=== PATIENT | female | born 1980 | race Caucasian/White ===

== ENCOUNTER 2018-11-07 10:41 | Inpatient (IN) ==
[2018-11-07] MEDS ORDERED: SODIUM CHLORIDE 0.9% 1,000 ML IV STA ×2 (11:41→14:25)
[2018-11-07] MEDS ORDERED: ONDANSETRON 4 MG/2 ML VIAL IV ONE (11:41)
[2018-11-07] MEDS ORDERED: MORPHINE 4 MG/1 ML VIAL IV ONE (11:41)
[2018-11-07 11:51] LABS: Basophils # 0.2 10*3/uL (0.0-0.2); Basophils % 0.4 % (0.0-0.8); Hematocrit 43.3 VOL% (35.7-47.0); Hemoglobin 13.6 GM/DL (12.0-16.0); Immature Granulocytes % 2.1 %; Immature Granulocytes Absolute 0.75 #; Lymphocytes # 2.3 10*3/uL (1.4-4.0); Lymphocytes % 6.4 % (21.3-54.2); Mean Corpuscular HGB Conc 31.4 GM/DL (32-36); Mean Corpuscular Volume 94.3 FL (87-102); Mean Platelet Volume 11.4 FL (9.6-12.0); Monocytes % 4.6 % (1.7-12.7); Neutrophils % 86.5 % (38.7-73.9); Platelet Count 413 T/CUMM (130-400); Red Blood Count 4.59 MC/CUMM (3.8-5.5); Red Cell Distribution Width 12.2 % (9.3-17.3); White Blood Count 35.6 T/CUMM (4-12)
[2018-11-07 12:04] LABS: ABG Base Excess -25.6 MMOL/L (-2.5-2.5); ABG HCO3 7.5 MMOL/L (20-26); ABG Oxygen Saturation 98.6 % (95-100); ABG TCO2 3.5 MMOL/L (23-27)
[2018-11-07 12:08] LABS: ABG PH 7.112 (7.35-7.45)
[2018-11-07 12:45] LABS: Band Neutrophils 3 % (0-10); Lymphocytes 6 % (20-55); Segmented Neutrophils 88 % (50-85); Total Cells Counted 100
[2018-11-07 12:46] LABS: Microcytosis Slight; Platelet Estimate Increased
[2018-11-07 13:01] LABS: PT Patient Result 10.5 SECS (9.6-12.2)
[2018-11-07 13:47] LABS: Alanine Aminotransferase 34 U/L (13-56); Albumin 4.5 G/DL (3.4-5.0); Alkaline Phosphatase 210 U/L (45-117); Aspartate Amino Transferase 19 U/L (0-37); Blood Urea Nitrogen 29 MG/DL (7-18); Calcium 9.2 MG/DL (8.5-10.1); Osmolality,Calculated 304.8 MOS/KG (273-304); Total Protein 8.5 G/DL (6.4-8.3); Troponin I < 0.015 NG/ML (0.00-0.045)
[2018-11-07 13:53] LABS: Glucose 558 MG/DL (74-106)
[2018-11-07] MEDS ORDERED: ALBUTEROL 2.5 MG/3 ML NEB RESP TX PRN (14:28)
[2018-11-07] MEDS ORDERED: SODIUM BICARBONATE 50 MEQ/50 ML SYRINGE IV STA (14:28)
[2018-11-07] MEDS ORDERED: ACETAMINOPHEN 325 MG TABLET PO PRN (14:28)
[2018-11-07] MEDS ORDERED: MORPHINE 4 MG/1 ML VIAL IV PRN (14:28)
[2018-11-07] MEDS ORDERED: DEXTROSE 50% 25 GM/50 ML VIAL IV PRN ×2 (14:32)
[2018-11-07] MEDS ORDERED: MAGNESIUM SULF RIDER 4 GM in PREMIX 1 EACH IV PRN (14:32)
[2018-11-07] MEDS ORDERED: SODIUM BICARB INJ 100 MEQ in STERILE WATER INJ 400 ML IV PRN (14:32)
[2018-11-07] MEDS ORDERED: INSULIN REGULAR 100 UNIT/ML IV ONE (14:32)
[2018-11-07] MEDS ORDERED: SODIUM PHOSPHATE INJ 16.4 MMOL in SODIUM CHLORIDE 0.9% 250 ML IV PRN (14:32)
[2018-11-07] MEDS ORDERED: SODIUM CHLORIDE 0.9% 1,000 ML IV ONE (14:32)
[2018-11-07] MEDS: INSULIN REGULAR DRIP 100 ML IV PRN (14:46)
[2018-11-07] MEDS ORDERED: PANTOPRAZOLE 40 MG TABLET PO SCH (15:00)
[2018-11-07] MEDS ORDERED: INSULIN REGULAR DRIP 100 ML IV SCH (15:00)
[2018-11-07 15:20] LABS: Pt O2 Delivery Device Room Air
[2018-11-07 15:21] LABS: ABG Base Excess -22.4 MMOL/L (-2.5-2.5); ABG HCO3 8.8 MMOL/L (20-26); ABG Oxygen Saturation 98.2 % (95-100); ABG TCO2 5.3 MMOL/L (23-27)
[2018-11-07 15:27] LABS: ABG PCO2 16.5 MM HG (35-48); ABG PH 7.147 (7.35-7.45)
[2018-11-07 15:45] LABS: Apearance,Urine CLEAR (Clear); Bilirubin,Urine Negative (Negative); Blood, Urine Small mg/dL (Negative); Glucose,Urine (UA) >=500 mg/dL (Negative); Ketones,Urine 80 mg/dL (Negative); Nitrite,Urine Negative (Negative); Protein,Urine Negative; RBC,Urine <1 /HPF (0-4); Squamous Epithelial Cell,Urine Occasional /HPF (0-10); Urine Color Straw (Yellow); Urine Specific Gravity 1.015 (1.001-1.035); Urine Urobilinogen < 2.0 EU/DL (0.2-1.0); WBC,Urine <1 /HPF (0-6)
[2018-11-07 16:06] LABS: Barbiturates Screen,Urine Negative (Negative); Benzodiazepines Screen,Urine Negative (Negative); Cannabinoid Screen,Urine Negative (Negative); Opiate Screen,Urine Positive (Negative); Phencyclidine Screen,Urine Negative (Negative)
[2018-11-07] MEDS ORDERED: INSULIN ASPART PROTAMINE/ASPART 70/30 100 UNIT/ML SUBCUT SCH (16:30)
[2018-11-07 16:58] LABS: Allen Test Positive; Pt O2 Delivery Device Room Air
[2018-11-07 16:59] LABS: ABG Base Excess -18.9 MMOL/L (-2.5-2.5); ABG HCO3 10.7 MMOL/L (20-26); ABG Oxygen Saturation 98.3 % (95-100); ABG PH 7.212 (7.35-7.45); ABG TCO2 7.2 MMOL/L (23-27)
[2018-11-07 17:01] LABS: ABG PCO2 19.5 MM HG (35-48)
[2018-11-07] MEDS: SODIUM CHLORIDE 0.9% 1,000 ML IV SCH ×3 (17:01→19:36)
[2018-11-07 17:07] LABS: Calcium 8.4 MG/DL (8.5-10.1); Osmolality,Calculated 312.6 MOS/KG (273-304)
[2018-11-07] MEDS: PANTOPRAZOLE 40 MG TABLET PO SCH (17:45)
[2018-11-07] MEDS: ENOXAPARIN 40 MG/0.4 ML SYRINGE SUBCUT SCH (17:45)
[2018-11-07] MEDS: cefTRIAXone 1,000 MG in SYRINGE 1 EACH IV SCH (17:46)
[2018-11-07] MEDS ORDERED: SODIUM CHLORIDE 0.9% 1,000 ML IV SCH (19:32)
[2018-11-07] MEDS: DEXTROSE 5% NACL 0.9% 1,000 ML IV SCH (20:30)
[2018-11-07 23:14] LABS: ABG Base Excess -14.2 MMOL/L (-2.5-2.5); ABG HCO3 13.5 MMOL/L (20-26); ABG Oxygen Saturation 97.3 % (95-100); ABG PCO2 28.4 MM HG (35-48); ABG PH 7.239 (7.35-7.45); ABG PO2 94.7 MM HG (80-95); ABG TCO2 11.2 MMOL/L (23-27); Allen Test Positive; Pt O2 Delivery Device Room Air
[2018-11-07 23:50] LABS: Calcium 7.4 MG/DL (8.5-10.1)
[2018-11-08] MEDS: DEXT 5% NACL 0.45% KCL 20 MEQ 20 MEQ/1,000 ML BAG IV SCH ×2 (00:41→04:51)
[2018-11-08] MEDS: DEXTROSE 5% NACL 0.9% 1,000 ML IV SCH ×2 (01:11→05:24)
[2018-11-08 04:51] LABS: Basophils % 0.1 % (0.0-0.8); Hematocrit 30.9 VOL% (35.7-47.0); Hemoglobin 10.2 GM/DL (12.0-16.0); Immature Granulocytes % 0.6 %; Immature Granulocytes Absolute 0.11 #; Lymphocytes # 1.1 10*3/uL (1.4-4.0); Lymphocytes % 5.7 % (21.3-54.2); Mean Corpuscular Volume 90.4 FL (87-102); Mean Platelet Volume 11.1 FL (9.6-12.0); Monocytes % 6.1 % (1.7-12.7); Neutrophils % 87.5 % (38.7-73.9); Platelet Count 293 T/CUMM (130-400); Red Blood Count 3.42 MC/CUMM (3.8-5.5); Red Cell Distribution Width 12.6 % (9.3-17.3); White Blood Count 18.3 T/CUMM (4-12)
[2018-11-08 05:07] LABS: Calcium 7.9 MG/DL (8.5-10.1)
[2018-11-08 05:19] LABS: Risk Ratio 2.78; Thyroid Stimulating Hormone 0.255 uIU/ml (0.358-3.74); VLDL CHOLESTEROL 24.2 MG/DL
[2018-11-08] MEDS ORDERED: POTASSIUM CHLORIDE RIDER 100 ML IV ONE (06:04)
[2018-11-08] MEDS ORDERED: POTASSIUM CHLORIDE RIDER 20 MEQ in PREMIX 1 EACH IV PRN (06:06)
[2018-11-08] MEDS: MAGNESIUM SULF RIDER 2 GM in PREMIX 1 EACH IV PRN (06:24)
[2018-11-08] MEDS ORDERED: SODIUM CHLORIDE 0.45% 1,000 ML IV SCH (07:32)
[2018-11-08] MEDS: DEXT 5% NACL 0.45% KCL 40 MEQ 40 MEQ/1,000 ML BAG IV SCH ×5 (08:04→20:40)
[2018-11-08] MEDS ORDERED: INSULIN ASPART PROTAMINE/ASPART 70/30 100 UNIT/ML SUBCUT SCH (09:00)
[2018-11-08] MEDS: PANTOPRAZOLE 40 MG TABLET PO SCH (09:28)
[2018-11-08] MEDS: ONDANSETRON 4 MG/2 ML VIAL IV PRN ×3 (09:32→21:13)
[2018-11-08] MEDS: INSULIN REGULAR DRIP 100 ML IV PRN (11:12)
[2018-11-08] MEDS: ERYTHROMYCIN INJ 500 MG in SODIUM CHLORIDE 0.9% 100 ML IV SCH ×2 (12:37→20:11)
[2018-11-08 13:29] LABS: Calcium 7.8 MG/DL (8.5-10.1); Osmolality,Calculated 294.3 MOS/KG (273-304)
[2018-11-08] MEDS: ENOXAPARIN 40 MG/0.4 ML SYRINGE SUBCUT SCH (14:48)
[2018-11-08] MEDS: cefTRIAXone 1,000 MG in SYRINGE 1 EACH IV SCH (14:49)
[2018-11-08 19:55] LABS: Calcium 7.7 MG/DL (8.5-10.1); Osmolality,Calculated 285.8 MOS/KG (273-304)
[2018-11-09] MEDS: DEXT 5% NACL 0.45% KCL 40 MEQ 40 MEQ/1,000 ML BAG IV SCH (02:55)
[2018-11-09 04:34] LABS: Basophils % 0.3 % (0.0-0.8); Eosinophils % 0.1 % (0.00-10.9); Hematocrit 29.6 VOL% (35.7-47.0); Hemoglobin 9.6 GM/DL (12.0-16.0); Immature Granulocytes % 0.6 %; Immature Granulocytes Absolute 0.07 #; Lymphocytes # 1.7 10*3/uL (1.4-4.0); Lymphocytes % 14.1 % (21.3-54.2); Mean Corpuscular HGB Conc 32.4 GM/DL (32-36); Mean Corpuscular Volume 92.2 FL (87-102); Mean Platelet Volume 11.1 FL (9.6-12.0); Monocytes % 6.6 % (1.7-12.7); Neutrophils % 78.3 % (38.7-73.9); Platelet Count 213 T/CUMM (130-400); Red Blood Count 3.21 MC/CUMM (3.8-5.5); Red Cell Distribution Width 13.1 % (9.3-17.3); White Blood Count 11.9 T/CUMM (4-12)
[2018-11-09 04:59] LABS: Albumin 2.5 G/DL (3.4-5.0); Bilirubin,Total 0.9 MG/DL (0.2-1.0); Free T4 (Free Thyroxine) 0.94 NG/DL (0.76-1.46); Thyroid Stimulating Hormone 0.852 uIU/ml (0.358-3.74); Total Protein 5.3 G/DL (6.4-8.3)
[2018-11-09] MEDS: ONDANSETRON 4 MG/2 ML VIAL IV PRN ×2 (08:55→21:30)
[2018-11-09] MEDS ORDERED: INSULIN ASPART PROTAMINE/ASPART 70/30 100 UNIT/ML SUBCUT SCH (09:00)
[2018-11-09] MEDS ORDERED: SODIUM CHLORIDE 0.45% 1,000 ML IV SCH (09:00)
[2018-11-09] MEDS: ERYTHROMYCIN INJ 500 MG in SODIUM CHLORIDE 0.9% 100 ML IV SCH ×2 (09:04→20:18)
[2018-11-09] MEDS: PANTOPRAZOLE 40 MG TABLET PO SCH (09:09)
[2018-11-09] MEDS ORDERED: PHENOL 1.4% THROAT SPRAY 177 ML BOTTLE PO PRN (10:49)
[2018-11-09] MEDS ORDERED: DEXTROSE 5% NACL 0.45% 1,000 ML IV SCH (12:00)
[2018-11-09] MEDS: DEXTROSE 5% 1,000 ML IV SCH (13:42)
[2018-11-09] MEDS: INSULIN GLARGINE 100 UNIT/ML SUBCUT SCH ×2 (13:52→16:35)
[2018-11-09] MEDS: cefTRIAXone 1,000 MG in SYRINGE 1 EACH IV SCH (14:51)
[2018-11-09] MEDS: INSULIN REGULAR 100 UNIT/ML SUBCUT SCH (21:07)
[2018-11-10] MEDS: DEXTROSE 5% 1,000 ML IV SCH ×2 (03:25→16:56)
[2018-11-10 04:25] LABS: Basophils % 0.1 % (0.0-0.8); Eosinophils # 0.1 10*3/uL (0.0-0.87); Eosinophils % 0.9 % (0.00-10.9); Hematocrit 28.6 VOL% (35.7-47.0); Hemoglobin 9.5 GM/DL (12.0-16.0); Immature Granulocytes % 0.3 %; Immature Granulocytes Absolute 0.02 #; Lymphocytes # 2.1 10*3/uL (1.4-4.0); Lymphocytes % 27.4 % (21.3-54.2); Mean Corpuscular HGB Conc 33.2 GM/DL (32-36); Mean Corpuscular Volume 90.2 FL (87-102); Mean Platelet Volume 11.1 FL (9.6-12.0); Monocytes % 7.3 % (1.7-12.7); Platelet Count 187 T/CUMM (130-400); Red Blood Count 3.17 MC/CUMM (3.8-5.5); Red Cell Distribution Width 12.2 % (9.3-17.3); White Blood Count 7.8 T/CUMM (4-12)
[2018-11-10 04:47] LABS: Albumin 2.4 G/DL (3.4-5.0); Bilirubin,Total 0.8 MG/DL (0.2-1.0); Calcium 7.9 MG/DL (8.5-10.1); Osmolality,Calculated 282.1 MOS/KG (273-304); Total Protein 5.3 G/DL (6.4-8.3)
[2018-11-10] MEDS ORDERED: LACTATED RINGERS 1,000 ML IV SCH (08:00)
[2018-11-10] MEDS: INSULIN REGULAR 100 UNIT/ML SUBCUT SCH ×4 (08:29→21:05)
[2018-11-10] MEDS: INSULIN GLARGINE 100 UNIT/ML SUBCUT SCH (08:29)
[2018-11-10] MEDS ORDERED: LIDOCAINE 2% 5 ML VIAL ONE (08:30)
[2018-11-10] MEDS ORDERED: PROPOFOL 200 MG/20 ML VIAL IV ONE (08:30)
[2018-11-10] MEDS: ERYTHROMYCIN INJ 500 MG in SODIUM CHLORIDE 0.9% 100 ML IV SCH ×2 (08:30→21:04)
[2018-11-10] MEDS: PANTOPRAZOLE 40 MG TABLET PO SCH (09:00)
[2018-11-10] MEDS ORDERED: POTASSIUM CHLORIDE RIDER 20 MEQ in PREMIX 1 EACH IV PRN (09:01)
[2018-11-10] MEDS: ONDANSETRON 4 MG/2 ML VIAL IV PRN ×2 (16:56→21:16)
[2018-11-11 05:05] LABS: Basophils % 0.5 % (0.0-0.8); Eosinophils # 0.3 10*3/uL (0.0-0.87); Eosinophils % 5.2 % (0.00-10.9); Hematocrit 28.6 VOL% (35.7-47.0); Hemoglobin 9.6 GM/DL (12.0-16.0); Immature Granulocytes % 0.2 %; Immature Granulocytes Absolute 0.01 #; Lymphocytes # 2.5 10*3/uL (1.4-4.0); Mean Corpuscular HGB Conc 33.6 GM/DL (32-36); Mean Corpuscular Volume 89.1 FL (87-102); Mean Platelet Volume 11.3 FL (9.6-12.0); Monocytes % 6.5 % (1.7-12.7); Neutrophils % 42.6 % (38.7-73.9); Platelet Count 189 T/CUMM (130-400); Red Blood Count 3.21 MC/CUMM (3.8-5.5); Red Cell Distribution Width 11.9 % (9.3-17.3); White Blood Count 5.6 T/CUMM (4-12)
[2018-11-11 05:33] LABS: Albumin 2.4 G/DL (3.4-5.0); Bilirubin,Total 1.4 MG/DL (0.2-1.0); Calcium 7.9 MG/DL (8.5-10.1); Total Protein 5.2 G/DL (6.4-8.3)
[2018-11-11] MEDS: DEXTROSE 5% 1,000 ML IV SCH ×2 (05:44→20:50)
[2018-11-11] MEDS: INSULIN GLARGINE 100 UNIT/ML SUBCUT SCH (08:55)
[2018-11-11] MEDS: PANTOPRAZOLE 40 MG TABLET PO SCH (08:56)
[2018-11-11] MEDS: INSULIN REGULAR 100 UNIT/ML SUBCUT SCH ×4 (08:56→21:25)
[2018-11-11] MEDS: ERYTHROMYCIN INJ 500 MG in SODIUM CHLORIDE 0.9% 100 ML IV SCH ×2 (08:57→20:28)
[2018-11-11] MEDS: ONDANSETRON 4 MG/2 ML VIAL IV PRN ×2 (13:07→20:50)
[2018-11-11] MEDS: POTASSIUM CHLORIDE RIDER 10 MEQ in PREMIX 1 EACH IV PRN ×3 (16:37→20:29)
[2018-11-12] MEDS ORDERED: DEXTROSE 10% 250 ML IV ONE (00:08)
[2018-11-12 06:09] LABS: Calcium 8.1 MG/DL (8.5-10.1); Osmolality,Calculated 284.8 MOS/KG (273-304)
[2018-11-12] MEDS: INSULIN REGULAR 100 UNIT/ML SUBCUT SCH ×4 (09:31→22:48)
[2018-11-12] MEDS: PANTOPRAZOLE 40 MG TABLET PO SCH (09:33)
[2018-11-12] MEDS: INSULIN GLARGINE 100 UNIT/ML SUBCUT SCH (09:33)
[2018-11-12] MEDS: ERYTHROMYCIN INJ 500 MG in SODIUM CHLORIDE 0.9% 100 ML IV SCH ×2 (09:33→21:39)
[2018-11-12] MEDS: DEXTROSE 5% 1,000 ML IV SCH ×2 (10:10→21:38)
[2018-11-12] MEDS: ONDANSETRON 4 MG/2 ML VIAL IV PRN ×2 (12:56→17:46)
[2018-11-13 05:00] LABS: Calcium 8.5 MG/DL (8.5-10.1); Osmolality,Calculated 282.8 MOS/KG (273-304)
[2018-11-13] MEDS: MAGNESIUM SULF RIDER 2 GM in PREMIX 1 EACH IV PRN (05:52)
[2018-11-13] MEDS ORDERED: DEXTROSE 10% 250 ML IV ONE (07:23)
[2018-11-13] MEDS: DEXTROSE 5% 1,000 ML IV SCH (10:03)
[2018-11-13] MEDS: PANTOPRAZOLE 40 MG TABLET PO SCH (10:03)
[2018-11-13] MEDS: INSULIN GLARGINE 100 UNIT/ML SUBCUT SCH ×2 (10:03→21:14)
[2018-11-13] MEDS: INSULIN REGULAR 100 UNIT/ML SUBCUT SCH ×4 (10:04→21:05)
[2018-11-13] MEDS: POTASSIUM CHLORIDE RIDER 10 MEQ in PREMIX 1 EACH IV PRN (10:06)
[2018-11-13] MEDS: ERYTHROMYCIN INJ 500 MG in SODIUM CHLORIDE 0.9% 100 ML IV SCH ×2 (13:28→21:01)
[2018-11-13] MEDS: ONDANSETRON 4 MG/2 ML VIAL IV PRN (14:47)
[2018-11-13] MEDS: POTASSIUM CHLORIDE 20 MEQ TABLET PO PRN (17:07)
[2018-11-14] MEDS: DEXTROSE 5% 1,000 ML IV SCH ×2 (00:23→12:48)
[2018-11-14] MEDS: PANTOPRAZOLE 40 MG TABLET PO SCH (09:38)
[2018-11-14] MEDS: ERYTHROMYCIN INJ 500 MG in SODIUM CHLORIDE 0.9% 100 ML IV SCH ×2 (09:38→20:47)
[2018-11-14] MEDS: INSULIN REGULAR 100 UNIT/ML SUBCUT SCH ×4 (09:38→22:07)
[2018-11-14 09:48] LABS: Calcium 8.4 MG/DL (8.5-10.1); Osmolality,Calculated 280.5 MOS/KG (273-304)
[2018-11-14] MEDS: INSULIN GLARGINE 100 UNIT/ML SUBCUT SCH (20:49)
[2018-11-14] MEDS: CALCIUM CARBONATE CHEW 500 MG TABLET PO SCH (21:08)
[2018-11-15] MEDS: DEXTROSE 5% 1,000 ML IV SCH (03:59)
[2018-11-15 04:53] LABS: Basophils % 0.6 % (0.0-0.8); Eosinophils # 0.4 10*3/uL (0.0-0.87); Eosinophils % 6.1 % (0.00-10.9); Hematocrit 29.2 VOL% (35.7-47.0); Hemoglobin 9.6 GM/DL (12.0-16.0); Immature Granulocytes % 1.2 %; Immature Granulocytes Absolute 0.09 #; Lymphocytes # 2.8 10*3/uL (1.4-4.0); Lymphocytes % 38.5 % (21.3-54.2); Mean Corpuscular HGB Conc 32.9 GM/DL (32-36); Mean Corpuscular Volume 91.8 FL (87-102); Mean Platelet Volume 10.9 FL (9.6-12.0); Monocytes % 11.6 % (1.7-12.7); Platelet Count 296 T/CUMM (130-400); Red Blood Count 3.18 MC/CUMM (3.8-5.5); Red Cell Distribution Width 11.9 % (9.3-17.3); White Blood Count 7.2 T/CUMM (4-12)
[2018-11-15 05:11] LABS: Calcium 8.6 MG/DL (8.5-10.1); Osmolality,Calculated 279.8 MOS/KG (273-304)
[2018-11-15] MEDS: PANTOPRAZOLE 40 MG TABLET PO SCH (08:43)
[2018-11-15] MEDS: POTASSIUM CHLORIDE 20 MEQ TABLET PO PRN (08:43)
[2018-11-15] MEDS: CALCIUM CARBONATE CHEW 500 MG TABLET PO SCH (08:43)
[2018-11-15] MEDS: ERYTHROMYCIN INJ 500 MG in SODIUM CHLORIDE 0.9% 100 ML IV SCH (08:48)
[2018-11-15] MEDS: INSULIN REGULAR 100 UNIT/ML SUBCUT SCH ×2 (08:49→13:33)
[2018-11-15 11:49] VITALS: BP 126/76
== END 2018-11-15 13:52 | disposition home or self-care (01) | DRG 637 ==
LOC: N.ED 10:41 → SUPCPDRO 14:28 → N.EDINP 14:28 → SUATTDRO 14:28 → N.ICU 15:27 → N.4E 11-10 11:42
PROVIDERS: ADMIT Internal Medicine Infectious Disease; ATTEND Hospitalist

== ENCOUNTER 2020-05-13 23:17 | Inpatient (IN) ==
[2020-05-14] MEDS ORDERED: ONDANSETRON 4 MG/2 ML VIAL IV ONE (00:21)
[2020-05-14] MEDS ORDERED: SODIUM CHLORIDE 0.9% 1,000 ML IV STA (00:21)
[2020-05-14 00:41] LABS: ABG Base Excess -7.5 MMOL/L (-2.5-2.5); ABG HCO3 18.4 MMOL/L (20-26); ABG Oxygen Saturation 97.1 % (95-100); ABG PCO2 36.8 MM HG (35-48); ABG PH 7.304 (7.35-7.45); ABG PO2 94.3 MM HG (80-95); ABG TCO2 16.1 MMOL/L (23-27)
[2020-05-14 01:27] LABS: Basophils % 0.2 % (0.0-0.8); Hematocrit 38.1 VOL% (35.7-47.0); Hemoglobin 12.7 GM/DL (12.0-16.0); Immature Granulocytes % 0.8 %; Immature Granulocytes Absolute 0.17 #; Lymphocytes # 0.9 10*3/uL (1.4-4.0); Lymphocytes % 4.2 % (21.3-54.2); Mean Corpuscular HGB Conc 33.3 GM/DL (32-36); Mean Corpuscular Volume 89.2 FL (87-102); Mean Platelet Volume 11.1 FL (9.6-12.0); Monocytes % 2.7 % (1.7-12.7); Neutrophils % 92.1 % (38.7-73.9); Platelet Count 312 T/CUMM (130-400); Red Blood Count 4.27 MC/CUMM (3.8-5.5); Red Cell Distribution Width 12.1 % (9.3-17.3); White Blood Count 21.4 T/CUMM (4-12)
[2020-05-14] MEDS ORDERED: INSULIN REGULAR DRIP 100 ML IV PRN ×2 (01:52→03:55)
[2020-05-14 01:53] LABS: Lymphocytes 1 % (20-55); Platelet Estimate Increased; Segmented Neutrophils 96 % (50-85); Total Cells Counted 100
[2020-05-14 01:54] LABS: Microcytosis Slight
[2020-05-14 01:55] LABS: Polychromasia Slight
[2020-05-14 02:04] LABS: Albumin 4.2 G/DL (3.4-5.0); Bilirubin,Total 2.1 MG/DL (0.2-1.0); Calcium 9.5 MG/DL (8.5-10.1); Osmolality,Calculated 289.8 MOS/KG (273-304); Potassium 4.7 MMOL/L (3.5-5.1); Total Protein 7.3 G/DL (5.0-7.5)
[2020-05-14] MEDS ORDERED: SODIUM CHLORIDE 0.9% IV PRN (02:53)
[2020-05-14] MEDS ORDERED: INSULIN REGULAR 100 UNIT/ML IV ONE (02:53)
[2020-05-14] MEDS ORDERED: SODIUM PHOSPHATE IV PRN (02:53)
[2020-05-14] MEDS ORDERED: DEXTROSE 50% 25 GM/50 ML VIAL IV PRN ×2 (02:53)
[2020-05-14] MEDS ORDERED: POTASSIUM CHLORIDE RIDER 10 MEQ in PREMIX 1 EACH IV PRN (02:53)
[2020-05-14] MEDS ORDERED: MAGNESIUM SULF RIDER 2 GM in PREMIX 1 EACH IV PRN (02:53)
[2020-05-14] MEDS ORDERED: MAGNESIUM SULF RIDER 4 GM in PREMIX 1 EACH IV PRN (02:53)
[2020-05-14] MEDS ORDERED: SODIUM BICARB INJ 100 MEQ in STERILE WATER INJ 400 ML IV PRN (02:53)
[2020-05-14 02:59] LABS: Bilirubin,Urine Negative (Negative); Blood, Urine Negative (Negative); Glucose,Urine (UA) >=500 mg/dL (Negative); Hyaline Casts,Urine 1 /LPF (0-3); Ketones,Urine 80 mg/dL (Negative); Mucus,Urine Occasional /LPF (Occasional); Nitrite,Urine Negative (Negative); Protein,Urine Negative; RBC,Urine 1 /HPF (0-4); Urine Appearance CLEAR (Clear); Urine Color Yellow (Yellow); Urine Urobilinogen < 2.0 EU/DL (0.2-1.0); WBC,Urine <1 /HPF (0-6)
[2020-05-14 03:21] LABS: ABG Base Excess -11.7 MMOL/L (-2.5-2.5); ABG HCO3 15.3 MMOL/L (20-26); ABG Oxygen Saturation 96.6 % (95-100); ABG PCO2 34.1 MM HG (35-48); ABG PH 7.246 (7.35-7.45); ABG PO2 94.1 MM HG (80-95); ABG TCO2 13.4 MMOL/L (23-27)
[2020-05-14] MEDS: SODIUM CHLORIDE 0.9% 1,000 ML IV SCH ×2 (04:05→06:05)
[2020-05-14 05:34] LABS: Osmolality,Calculated 294.4 MOS/KG (273-304); Potassium 4.7 MMOL/L (3.5-5.1)
[2020-05-14 07:40] LABS: Calcium 8.2 MG/DL (8.5-10.1); Osmolality,Calculated 292.1 MOS/KG (273-304); Potassium 4.4 MMOL/L (3.5-5.1)
[2020-05-14] MEDS ORDERED: SODIUM CHLORIDE 0.9% 1,000 ML IV SCH ×2 (07:53→13:46)
[2020-05-14] MEDS: PANTOPRAZOLE 40 MG VIAL IV SCH (09:21)
[2020-05-14] MEDS: ENOXAPARIN 40 MG/0.4 ML SYRINGE SUBCUT SCH (09:21)
[2020-05-14 13:23] LABS: Calcium 7.5 MG/DL (8.5-10.1); Osmolality,Calculated 292.4 MOS/KG (273-304); Potassium 4.2 MMOL/L (3.5-5.1)
[2020-05-14 15:14] LABS: Calcium 7.4 MG/DL (8.5-10.1); Osmolality,Calculated 287.4 MOS/KG (273-304); Potassium 3.8 MMOL/L (3.5-5.1)
[2020-05-14] MEDS ORDERED: DEXTROSE 5% LACTATED RINGERS 1,000 ML IV SCH (17:30)
[2020-05-14] MEDS: NYSTATIN 500,000 UNIT/5 ML UDCUP SWISH/SWAL SCH (17:57)
[2020-05-14 18:46] LABS: Calcium 7.7 MG/DL (8.5-10.1); Osmolality,Calculated 281.5 MOS/KG (273-304)
[2020-05-14] MEDS ORDERED: SODIUM CHLORIDE 0.45% 1,000 ML IV SCH (19:53)
[2020-05-14] MEDS: INSULIN REGULAR 100 UNIT/ML SUBCUT SCH (20:14)
[2020-05-15] MEDS: INSULIN REGULAR 100 UNIT/ML SUBCUT SCH ×6 (00:04→20:10)
[2020-05-15 04:46] LABS: Basophils % 0.2 % (0.0-0.8); Eosinophils % 0.1 % (0.00-10.9); Hematocrit 29.1 VOL% (35.7-47.0); Hemoglobin 9.4 GM/DL (12.0-16.0); Immature Granulocytes % 0.6 %; Lymphocytes # 2.4 10*3/uL (1.4-4.0); Lymphocytes % 13.4 % (21.3-54.2); Mean Corpuscular HGB Conc 32.3 GM/DL (32-36); Mean Corpuscular Volume 90.9 FL (87-102); Mean Platelet Volume 10.7 FL (9.6-12.0); Monocytes % 6.6 % (1.7-12.7); Neutrophils % 79.1 % (38.7-73.9); Platelet Count 245 T/CUMM (130-400); Red Cell Distribution Width 12.4 % (9.3-17.3); White Blood Count 17.6 T/CUMM (4-12)
[2020-05-15 05:18] LABS: Calcium 7.7 MG/DL (8.5-10.1); Osmolality,Calculated 280.7 MOS/KG (273-304); Potassium 3.6 MMOL/L (3.5-5.1)
[2020-05-15] MEDS: ENOXAPARIN 40 MG/0.4 ML SYRINGE SUBCUT SCH (06:37)
[2020-05-15] MEDS: PANTOPRAZOLE 40 MG VIAL IV SCH (09:08)
[2020-05-15] MEDS: NYSTATIN 500,000 UNIT/5 ML UDCUP SWISH/SWAL SCH ×2 (09:08→21:10)
[2020-05-15] MEDS ORDERED: POTASSIUM PHOSPHATE 30 MMOL in SODIUM CHLORIDE 0.9% 250 ML IV ONE (10:00)
[2020-05-16] MEDS: INSULIN REGULAR 100 UNIT/ML SUBCUT SCH ×3 (00:22→08:20)
[2020-05-16 04:33] LABS: Calcium 7.7 MG/DL (8.5-10.1); Osmolality,Calculated 283.7 MOS/KG (273-304); Potassium 3.9 MMOL/L (3.5-5.1)
[2020-05-16] MEDS: PANTOPRAZOLE 40 MG TABLET PO SCH (06:26)
[2020-05-16] MEDS: ENOXAPARIN 40 MG/0.4 ML SYRINGE SUBCUT SCH (06:26)
[2020-05-16] MEDS ORDERED: ONDANSETRON 4 MG/2 ML VIAL IV PRN (09:03)
[2020-05-16] MEDS ORDERED: traMADol 50 MG TABLET PO PRN (09:04)
[2020-05-16] MEDS: NYSTATIN 500,000 UNIT/5 ML UDCUP SWISH/SWAL SCH ×2 (10:50→21:18)
[2020-05-16] MEDS ORDERED: ERYTHROMYCIN ETHYLSUCCINATE 40 MG/ML 100 ML/BOTTLE PO SCH (11:00)
[2020-05-16] MEDS ORDERED: INSULIN LISPRO 100 UNIT/ML SUBCUT PRN (11:38)
[2020-05-16] MEDS: SODIUM CHLORIDE 0.9% 1,000 ML IV SCH (13:15)
[2020-05-16] MEDS: ERYTHROMYCIN INJ 125 MG in SODIUM CHLORIDE 0.9% 100 ML IV SCH ×2 (15:44→21:18)
[2020-05-17] MEDS: SODIUM CHLORIDE 0.9% 1,000 ML IV SCH (02:20)
[2020-05-17 04:27] LABS: Basophils % 0.7 % (0.0-0.8); Eosinophils # 0.2 10*3/uL (0.0-0.87); Eosinophils % 3.5 % (0.00-10.9); Hematocrit 28.5 VOL% (35.7-47.0); Hemoglobin 9.3 GM/DL (12.0-16.0); Immature Granulocytes % 0.2 %; Immature Granulocytes Absolute 0.01 #; Lymphocytes # 2.6 10*3/uL (1.4-4.0); Lymphocytes % 49.3 % (21.3-54.2); Mean Corpuscular HGB Conc 32.6 GM/DL (32-36); Mean Corpuscular Volume 89.6 FL (87-102); Mean Platelet Volume 11.4 FL (9.6-12.0); Neutrophils % 38.3 % (38.7-73.9); Platelet Count 183 T/CUMM (130-400); Red Blood Count 3.18 MC/CUMM (3.8-5.5); Red Cell Distribution Width 12.1 % (9.3-17.3); White Blood Count 5.4 T/CUMM (4-12)
[2020-05-17 04:50] LABS: Atypical Lymphocytes Few; Eosinophils 5 % (0-10); Hypochromasia 1+; Lymphocytes 42 % (20-55); Microcytosis 1+; Platelet Estimate Adequate; Segmented Neutrophils 44 % (50-85); Total Cells Counted 100
[2020-05-17 04:54] LABS: Calcium 7.7 MG/DL (8.5-10.1); Osmolality,Calculated 285.1 MOS/KG (273-304); Potassium 3.6 MMOL/L (3.5-5.1)
[2020-05-17 04:57] LABS: Risk Ratio 2.56; VLDL CHOLESTEROL 17.8 MG/DL
[2020-05-17] MEDS: ERYTHROMYCIN INJ 125 MG in SODIUM CHLORIDE 0.9% 100 ML IV SCH (06:00)
[2020-05-17] MEDS: PANTOPRAZOLE 40 MG TABLET PO SCH (06:00)
[2020-05-17] MEDS: ENOXAPARIN 40 MG/0.4 ML SYRINGE SUBCUT SCH (06:00)
[2020-05-17 08:22] VITALS: BP 157/83
[2020-05-17] MEDS: NYSTATIN 500,000 UNIT/5 ML UDCUP SWISH/SWAL SCH (08:56)
[2020-05-17] MEDS ORDERED: ROSUVASTATIN 10 MG TABLET PO SCH (09:00)
== END 2020-05-17 11:16 | disposition home or self-care (01) | DRG 638 ==
LOC: N.ED 23:17 → SUATTDRO 05-14 02:53 → N.EDINP 05-14 02:53 → N.CC 05-14 03:40 → N.5E 05-15 16:54
PROVIDERS: ADMIT Internal Medicine; ATTEND Internal Medicine

== ENCOUNTER 2020-07-09 06:57 | Inpatient (IN) ==
[2020-07-03 11:56] LABS: Basophils # 0.1 10*3/uL (0.0-0.2); Basophils % 0.7 % (0.0-0.8); Eosinophils # 0.2 10*3/uL (0.0-0.87); Hemoglobin 12.6 GM/DL (12.0-16.0); Immature Granulocytes % 0.4 %; Immature Granulocytes Absolute 0.03 #; Lymphocytes # 2.3 10*3/uL (1.4-4.0); Lymphocytes % 32.1 % (21.3-54.2); Mean Corpuscular HGB Conc 32.3 GM/DL (32-36); Mean Corpuscular Volume 89.9 FL (87-102); Mean Platelet Volume 10.8 FL (9.6-12.0); Monocytes % 5.9 % (1.7-12.7); Neutrophils % 57.9 % (38.7-73.9); Platelet Count 295 T/CUMM (130-400); Red Blood Count 4.34 MC/CUMM (3.8-5.5); Red Cell Distribution Width 12.1 % (9.3-17.3); White Blood Count 7.3 T/CUMM (4-12)
[2020-07-03 12:11] LABS: Calcium 9.2 MG/DL (8.5-10.1); Osmolality,Calculated 281.8 MOS/KG (273-304); Potassium 3.9 MMOL/L (3.5-5.1)
[~2020-07-09 06:57] MED LIST: LACTATED RINGERS 1,000 ML IV SCH
[2020-07-09] MEDS ORDERED: DEXTROSE 50% 25 GM/50 ML VIAL IV ONE (07:07)
[2020-07-09] MEDS ORDERED: DEXTROSE 50% 25 GM/50 ML VIAL IV STA (07:32)
[2020-07-09] MEDS ORDERED: GABAPENTIN 400 MG CAPSULE PO ONE (07:34)
[2020-07-09] MEDS ORDERED: FAMOTIDINE 20 MG TABLET PO ONE (07:34)
[2020-07-09] MEDS ORDERED: ACETAMINOPHEN 500 MG TABLET PO ONE (07:34)
[2020-07-09] MEDS ORDERED: DIAZEPAM 5 MG TABLET PO ONE (07:34)
[2020-07-09] MEDS ORDERED: GABAPENTIN 400 MG CAPSULE ONE (07:38)
[2020-07-09] MEDS ORDERED: DIAZEPAM 5 MG TABLET ONE (07:38)
[2020-07-09] MEDS ORDERED: BUPIVACAINE MPF 0.25% 30 ML VIAL ONE (08:00)
[2020-07-09] MEDS ORDERED: MIDAZOLAM 2 MG/2 ML VIAL ONE ×2 (08:34→08:42)
[2020-07-09] MEDS ORDERED: fentaNYL 100 MCG/2 ML VIAL ONE ×2 (08:34→08:42)
[2020-07-09] MEDS ORDERED: ePHEDrine 50 MG/ML VIAL ONE (09:01)
[2020-07-09] MEDS ORDERED: PHENYLEPHRINE 1 MG/10 ML SYRINGE IV ONE (09:01)
[2020-07-09] MEDS ORDERED: SEVOFLURANE 1 UNIT/15 MINUTE INH ONE (10:04)
[2020-07-09] MEDS ORDERED: SUCCINYLCHOLINE 200 MG/10 ML VIAL ONE (10:05)
[2020-07-09] MEDS ORDERED: DEXAMETHASONE 4 MG/1 ML VIAL ONE (10:05)
[2020-07-09] MEDS ORDERED: GLYCOPYRROLATE 0.4 MG/2 ML VIAL ONE (10:05)
[2020-07-09] MEDS ORDERED: ONDANSETRON 4 MG/2 ML VIAL ONE ×2 (10:05→10:40)
[2020-07-09] MEDS ORDERED: ROCURONIUM 50 MG/5 ML VIAL IV ONE (10:05)
[2020-07-09] MEDS ORDERED: HYDROmorphone 2 MG/1 ML VIAL ONE (10:40)
[2020-07-09] MEDS: HYDROmorphone 2 MG/1 ML VIAL IV PRN ×2 (10:41→11:45)
[2020-07-09] MEDS ORDERED: ONDANSETRON 4 MG/2 ML VIAL IV PRN (10:43)
[2020-07-09] MEDS ORDERED: DICYCLOMINE 10 MG CAPSULE PO PRN (11:14)
[2020-07-09] MEDS ORDERED: ACETAMINOPHEN 325 MG TABLET PO PRN (11:15)
[2020-07-09] MEDS ORDERED: HYDROmorphone 2 MG/1 ML VIAL IV PRN ×2 (11:15)
[2020-07-09] MEDS ORDERED: ALBUTEROL/IPRATROPIUM 3 ML NEB RESP TX PRN (11:15)
[2020-07-09] MEDS: KETOROLAC 15 MG/1 ML VIAL IV PRN (16:15)
[2020-07-09] MEDS: LACTATED RINGERS 1,000 ML IV SCH (17:49)
[2020-07-09] MEDS: ceFAZolin 2,000 MG in PREMIX 1 EACH IV SCH (17:55)
[2020-07-10] MEDS: ceFAZolin 2,000 MG in PREMIX 1 EACH IV SCH (01:42)
[2020-07-10] MEDS: LACTATED RINGERS 1,000 ML IV SCH ×2 (01:42→07:20)
[2020-07-10 05:25] LABS: Basophils % 0.2 % (0.0-0.8); Eosinophils % 0.2 % (0.00-10.9); Hematocrit 32.5 VOL% (35.7-47.0); Hemoglobin 10.7 GM/DL (12.0-16.0); Immature Granulocytes % 0.5 %; Immature Granulocytes Absolute 0.06 #; Lymphocytes # 1.9 10*3/uL (1.4-4.0); Lymphocytes % 15.6 % (21.3-54.2); Mean Corpuscular HGB Conc 32.9 GM/DL (32-36); Mean Corpuscular Volume 89.3 FL (87-102); Mean Platelet Volume 11.3 FL (9.6-12.0); Monocytes % 5.9 % (1.7-12.7); Neutrophils % 77.6 % (38.7-73.9); Platelet Count 229 T/CUMM (130-400); Red Blood Count 3.64 MC/CUMM (3.8-5.5); Red Cell Distribution Width 11.9 % (9.3-17.3); White Blood Count 12.3 T/CUMM (4-12)
[2020-07-10] MEDS: ENOXAPARIN 40 MG/0.4 ML SYRINGE SUBCUT SCH (05:36)
[2020-07-10] MEDS: ONDANSETRON 4 MG/2 ML VIAL IV PRN ×2 (05:37→14:18)
[2020-07-10] MEDS: KETOROLAC 15 MG/1 ML VIAL IV PRN ×2 (05:37→14:15)
[2020-07-10 06:03] LABS: Calcium 8.7 MG/DL (8.5-10.1); Potassium 4.1 MMOL/L (3.5-5.1)
[2020-07-10] MEDS: PANTOPRAZOLE 40 MG TABLET PO SCH (09:43)
[2020-07-10] MEDS ORDERED: INSULIN LISPRO 100 UNIT/ML SUBCUT PRN (10:18)
[2020-07-11] MEDS: ENOXAPARIN 40 MG/0.4 ML SYRINGE SUBCUT SCH (05:42)
[2020-07-11] MEDS ORDERED: BENZONATATE 100 MG CAPSULE PO PRN (09:02)
[2020-07-11] MEDS: PANTOPRAZOLE 40 MG TABLET PO SCH (09:08)
[2020-07-11] MEDS: ONDANSETRON 4 MG/2 ML VIAL IV PRN (09:31)
[2020-07-11] MEDS ORDERED: SCOPOLAMINE 1.5 MG PATCH TRANSDERM ONE (09:45)
[2020-07-11] MEDS: LACTATED RINGERS 1,000 ML IV SCH ×2 (10:03→18:15)
[2020-07-11] MEDS ORDERED: HYDROcodone/CHLORPHENIRAMINE ER 5 ML UDCUP PO PRN (16:13)
[2020-07-11] MEDS: BENZONATATE 100 MG CAPSULE PO SCH ×2 (16:59→20:11)
[2020-07-12] MEDS: LACTATED RINGERS 1,000 ML IV SCH (02:08)
[2020-07-12] MEDS: ENOXAPARIN 40 MG/0.4 ML SYRINGE SUBCUT SCH (05:27)
[2020-07-12 06:32] LABS: Basophils # 0.1 10*3/uL (0.0-0.2); Basophils % 0.9 % (0.0-0.8); Eosinophils # 0.4 10*3/uL (0.0-0.87); Eosinophils % 6.8 % (0.00-10.9); Hematocrit 30.3 VOL% (35.7-47.0); Hemoglobin 10.4 GM/DL (12.0-16.0); Immature Granulocytes % 0.3 %; Immature Granulocytes Absolute 0.02 #; Lymphocytes # 2.4 10*3/uL (1.4-4.0); Lymphocytes % 36.8 % (21.3-54.2); Mean Corpuscular HGB Conc 34.3 GM/DL (32-36); Mean Corpuscular Volume 87.8 FL (87-102); Mean Platelet Volume 11.5 FL (9.6-12.0); Neutrophils % 47.2 % (38.7-73.9); Platelet Count 223 T/CUMM (130-400); Red Blood Count 3.45 MC/CUMM (3.8-5.5); White Blood Count 6.5 T/CUMM (4-12)
[2020-07-12 06:53] LABS: Calcium 8.7 MG/DL (8.5-10.1); Osmolality,Calculated 275.7 MOS/KG (273-304)
[2020-07-12 07:40] VITALS: BP 115/57
[2020-07-12] MEDS: PANTOPRAZOLE 40 MG TABLET PO SCH (08:43)
[2020-07-12] MEDS: BENZONATATE 100 MG CAPSULE PO SCH (08:43)
== END 2020-07-12 11:21 | disposition home or self-care (01) | DRG 983 ==
LOC: N.OR 06:57 → N.SDSINP 07:04 → N.3E 12:58
PROVIDERS: ADMIT Surgery; ATTEND Surgery